=== PATIENT | male | born 1995 | race Hispanic/Latino ===

== ENCOUNTER 2017-11-07 15:06 | Emergency (ER) | payer MEDICAID, OTHER ==
[2017-11-07] MEDS ORDERED: ONDANSETRON ODT 4 MG TAB ONE (15:53)
== END 2017-11-07 16:12 | disposition home or self-care (01) ==
LOC: EDH 15:06
DX: K52.9 Noninfective gastroenteritis and colitis, unspecified (principal); J45.909 Unspecified asthma, uncomplicated